=== PATIENT | male | born 1975 ===

== ENCOUNTER 2018-03-12 09:30 | Emergency (ER) | payer OTHER ==
[2018-03-12 09:36] VITALS: TEMP 97.4; BMI 30.2
--- NOTE | 2018-03-12 10:31 | ED PDOC ---
Lower Extremity Pain/Injury Time Seen by Provider: 03/12/18 09:59 Chief Complaint (Nursing): Lower Extremity Problem/Injury Chief Complaint (Provider): Knee pain History Per: Patient History/Exam Limitations: no limitations Onset/Duration Of Symptoms: Days (1 week) Current Symptoms Are (Timing): Still Present Additional Complaint(s): Pt. was on the carpet on his knees and they were rubbing on the carpet. He then noticed a pimple on his right knee. Since then the pimple broke and front of his knee got red and swollen. He notices the swelling get worse on walking and working and gets better when he is resting. No calf pain, thigh pain, hip pain. No numbness, tingles. Has not taken anything for the symptoms except apply some cream. No fever. Ambulated with no issues. Past Medical History Reviewed: Nursing Documentation, Vital Signs Vital Signs: Last Vital Signs Temp 97.4 F L 03/12/18 09:35 Pulse 88 03/12/18 09:35 Resp BP 130/79 03/12/18 09:35 Pulse Ox 98 03/12/18 09:44 - Medical History PMH: No Chronic Diseases - Surgical History Surgical History: No Surg Hx - Family History Family History: States: Unknown Family Hx - Home Medications Home Medications: Ambulatory Orders Medication Instructions Recorded Clindamycin [Cleocin] 300 mg PO QID 7 Days cap 03/12/18 Ibuprofen [Motrin] 600 mg PO TID 7 Days tab 03/12/18 - Allergies Allergies/Adverse Reactions: Allergies Allergy/AdvReac Type Severity Reaction Status Date / Time No Known Allergies Allergy Verified 03/12/18 09:43 Review of Systems ROS Statement: Except As Marked, All Systems Reviewed And Found Negative Musculoskeletal: Positive for: Leg Pain Skin: Positive for: Rash Physical Exam - Reviewed Nursing Documentation Reviewed: Yes Vital Signs Reviewed: Yes - Physical Exam Appears: Positive for: Non-toxic, No Acute Distress Head Exam: Positive for: ATRAUMATIC, NORMAL INSPECTION, NORMOCEPHALIC Skin: Positive for: Normal Color, Warm, DRY Neck: Positive for: Normal, Painless ROM Cardiovascular/Chest: Positive for: Regular Rate, Rhythm Respiratory: Positive for: CNT, Normal Breath Sounds Pulses-Dorsalis Pedis (R): 2+ Back: Positive for: Normal Inspection. Negative for: L CVA Tenderness, R CVA Tenderness Extremity: Positive for: Normal ROM, Tenderness (R knee anterior with erythema and swelling; smalll pimple that is not draining; no fluctuance to skin; no tenderness in joint; has full ROM. mild anterior erythema. ). Negative for: Pedal Edema, Calf Tenderness Neurologic/Psych: Positive for: Alert, Oriented - ECG O2 Sat by Pulse Oximetry: 98 Pulse Ox Interpretation: Normal - Progress ED Course And Treament: 1036: Stable. AAOx3. Has full ROM. Ambulated with no issues. Likely cellulitis. Will rx clinda and motrin. Disposition - Clinical Impression Clinical Impression: Cellulitis - Patient ED Disposition Is Patient to be Admitted: No Counseled Patient/Family Regarding: Diagnosis, Need For Followup, Rx Given - Disposition Referrals: [facility] [Outside] - 03/15/18 Disposition: Routine/Home Disposition Time: 10:38 Condition: STABLE Additional Instructions: Return if not better in 3 days. Prescriptions: Clindamycin [Cleocin] 300 mg PO QID 7 Days cap Ibuprofen [Motrin] 600 mg PO TID 7 Days tab Instructions: Cellulitis (Skin Infection), Adult (DC) Forms: [facility] ED School/Work Excuse Print Language: VENEZUEL[place]
[2018-03-12 11:15] VITALS: BP 128/72; PULSE 84; RESP 16; O2SAT 99
== END 2018-03-12 11:16 | disposition home or self-care (01) ==
LOC: H.ER 09:30
DX: L03.115 Cellulitis of right lower limb (principal)
CPT/HCPCS: 96372; 99283; J1885